=== PATIENT | male | born 1945 | race Caucasian/White ===

== ENCOUNTER → 2017-06-29 | Outpatient (CLI) | payer MEDICARE | END | disposition home or self-care (01) | LOC: CFH 12:46 | PROVIDERS: ATTEND Orthopaedic Surgery | DX: S41.011A Laceration without foreign body of right shoulder, initial encounter (principal); M19.011 Primary osteoarthritis, right shoulder; G89.29 Other chronic pain; Y99.8 Other external cause status; Y92.89 Other specified places as the place of occurrence of the external cause; Y93.89 Activity, other specified; X58.XXXA Exposure to other specified factors, initial encounter ==

== ENCOUNTER 2017-09-09 14:42 | Day surgery (SDC) | payer MEDICARE ==
[~2017-09-09] VITALS: Ht 177.8 cm; Wt 90.0 kg
[2017-09-09] MEDS ORDERED: BUPIVACAINE/PF 0.5% ONE ×2 (15:38→16:16)
[2017-09-09] MEDS ORDERED: LIDOCAINE/MPF 2%-EPI 1:200K, 20 ML ONE (15:39)
[2017-09-09] MEDS ORDERED: EPINEPHRINE 1 MG/ML, 1ML ONE (15:39)
[2017-09-09] MEDS ORDERED: MIDAZOLAM 1 MG/ML, 2ML ONE (15:48)
[2017-09-09] MEDS ORDERED: PROPOFOL 10 MG/ML, 20ML ONE ×3 (15:48)
[2017-09-09] MEDS ORDERED: FENTANYL PF 100 MCG/2ML ONE ×2 (15:48→16:31)
[2017-09-09 15:51] VITALS: BP 146/75
[2017-09-09] MEDS ORDERED: LACTATED RINGERS 1,000 ML IV SCH (16:05)
[2017-09-09] MEDS ORDERED: LISI-170 PO (16:06)
[2017-09-09] MEDS ORDERED: DEXAMETHASONE 4 MG/ML, 1ML ONE (16:13)
[2017-09-09] MEDS ORDERED: ONDANSETRON 2MG/ML, 2ML ONE (16:13)
[2017-09-09] MEDS ORDERED: CEFAZOLIN 1,000 MG ONE (16:13)
[2017-09-09] MEDS ORDERED: TRIAMCINOLONE ACETONIDE 40 MG/ML, 1ML ONE (16:16)
[2017-09-09] MEDS ORDERED: LORazepam 2 MG/ML, 1ML IVPush PRN (16:30)
[2017-09-09] MEDS ORDERED: EPHEDRINE 50 MG/ML, 1ML IVPush PRN (16:30)
[2017-09-09] MEDS ORDERED: MIDAZOLAM 1 MG/ML, 2ML IV PRN (16:30)
[2017-09-09] MEDS ORDERED: ONDANSETRON 2MG/ML, 2ML IVPush PRN (16:30)
[2017-09-09] MEDS ORDERED: OXYcodone 5 MG/5 ML ORAL.SOL UDC PO PRN (16:30)
[2017-09-09] MEDS ORDERED: FENTANYL PF 100 MCG/2ML IV PRN (16:30)
[2017-09-09] MEDS ORDERED: ACETAMINOPHEN 325 MG TABLET PO PRN (16:30)
[2017-09-09] MEDS ORDERED: LABETALOL 5MG/ML, 20ML IV PRN (16:30)
[2017-09-09] MEDS ORDERED: PROMETHAZINE 25 MG/ML, 1ML IV PRN (16:30)
[2017-09-09] MEDS ORDERED: HYDROmorphone 1 MG/ML, 1ML IV PRN (16:30)
[2017-09-09] MEDS ORDERED: TRIAMCINOLONE ACETONIDE 40 MG/ML, 1ML IM ONE (16:33)
[2017-09-09] MEDS ORDERED: BUPIVACAINE/PF-EPI 0.5% 1:200K INFIL ONE ×2 (16:33→16:40)
[2017-09-09] MEDS ORDERED: BUPIVACAINE 0.25% INFIL ONE (16:34)
[2017-09-09] MEDS ORDERED: OXYcodone 5 MG/5 ML ORAL.SOL UDC ONE (17:43)
[2017-09-09] MEDS ORDERED: ACETAMINOPHEN 325 MG TABLET ONE (17:43)
[2017-09-09] MEDS ORDERED: ACETAMINOPHEN 650 MG/20.3 ML UDC ONE (17:43)
== END 2017-09-09 18:55 ==
LOC: OR 14:42
PROVIDERS: ATTEND Orthopaedic Surgery
DX: G56.02 Carpal tunnel syndrome, left upper limb (principal); M75.52 Bursitis of left shoulder; M65.312 Trigger thumb, left thumb; M65.322 Trigger finger, left index finger; M65.332 Trigger finger, left middle finger
CPT/HCPCS: 20610; 26055; 64721; J0171; J0690; J1100; J2250; J2405; J2704; J3010; J3301; J3490; J7120

== ENCOUNTER → 2019-08-22 | Outpatient (CLI) | payer MEDICARE ==
[~2019-08-22] MED LIST: GADOTERATE 10 MMOL/20 ML VIAL ONE; LISI-170 PO
== END | disposition home or self-care (01) ==
LOC: CFH 10:11
PROVIDERS: ATTEND Nurse Practitioner Family
DX: I63.9 Cerebral infarction, unspecified (principal); H53.2 Diplopia; R25.1 Tremor, unspecified
CPT/HCPCS: 70553; A9575

== ENCOUNTER → 2020-06-19 | Outpatient (CLI) | payer MEDICARE ==
[~2020-06-19] MED LIST changes: +ALLO100T30 PO; +ALLO300T PO; +AMIO200T42 PO; +APIX5TAB PO; +ATOR40TA78 PO; +CARV25TA12 PO; -GADOTERATE 10 MMOL/20 ML VIAL ONE; +LOSA50TA14 PO; +MULT-658 PO; +POTASSIUM CHLORIDE PO; +PRED10TA PO; +PRED20TA PO; +SUPER B COMPLEX PO
== END | disposition home or self-care (01) ==
LOC: STAR 14:05
PROVIDERS: ATTEND Anesthesiology
DX: Z01.812 Encounter for preprocedural laboratory examination (principal); Z20.828 Contact with and (suspected) exposure to other viral communicable diseases
CPT/HCPCS: 36415; 87635

== ENCOUNTER 2020-06-23 07:54 | Day surgery (SDC) | payer MEDICARE ==
[~2020-06-23] VITALS: Ht 181.6 cm; Wt 93.2 kg
[~2020-06-23 07:54] MED LIST changes: -ALLO100T30 PO; -AMIO200T42 PO; -APIX5TAB PO; -ATOR40TA78 PO; -CARV25TA12 PO; -MULT-658 PO; -POTASSIUM CHLORIDE PO; -PRED10TA PO; -SUPER B COMPLEX PO
[2020-06-23] MEDS ORDERED: SODIUM CHLORIDE 0.9% 1,000 ML IV SCH (08:20)
[2020-06-23] MEDS ORDERED: FENTANYL PF 250 MCG/5ML ONE (08:31)
[2020-06-23] MEDS ORDERED: POTASSIUM CHLORIDE PO (08:37)
[2020-06-23] MEDS ORDERED: MULT-658 PO (08:37)
[2020-06-23] MEDS ORDERED: SUPER B COMPLEX PO (08:37)
[2020-06-23] MEDS ORDERED: ATOR40TA78 PO (08:37)
[2020-06-23] MEDS ORDERED: PRED10TA PO (08:37)
[2020-06-23] MEDS ORDERED: ALLO100T30 PO (08:37)
[2020-06-23] MEDS ORDERED: AMIO200T42 PO (08:37)
[2020-06-23] MEDS ORDERED: APIX5TAB PO (08:37)
[2020-06-23] MEDS ORDERED: CARV25TA12 PO (08:37)
[2020-06-23 08:40] VITALS: BP 158/75
[2020-06-23] MEDS ORDERED: PLEASE ENTER HEIGHT AND WEIGHT MC SCH (09:00)
[2020-06-23 09:13] LABS: ANION GAP 9 mmol/L (5-15); CALCIUM 9.2 mg/dL (8.5-10.1); CHLORIDE 109 mmol/L (98-107); CREATININE 1.16 mg/dL (0.7-1.3)
[2020-06-23 09:17] LABS: BASOPHILS # (AUTO) 0.05 x10^3/uL (0-0.1); BASOPHILS % (AUTO) 1 % (0-1); EOSINOPHILS # (AUTO) 0.05 x10^3/uL (0-0.4); EOSINOPHILS % (AUTO) 1 % (1-7); LYMPHOCYTES # (AUTO) 1.59 x10^3/uL (1-3.4); LYMPHOCYTES % (AUTO) 20 % (22-44); MD NO; MEAN CORPUSCULAR HEMOGLOBIN 31.3 pg (27.5-34.5); MEAN CORPUSCULAR HGB CONC 33.3 g/dL (33.2-36.2); MEAN PLATELET VOLUME 8.6 fL (7.4-10.4); MONOCYTES # (AUTO) 0.81 x10^3/uL (0.2-0.8); MONOCYTES % (AUTO) 10 % (2-9); NEUTROPHILS # (AUTO) 5.35 x10^3/uL (1.8-6.8); NEUTROPHILS % (AUTO) 68 % (42-75); PLATELET COUNT 222 x10^3/uL (130-400); RED BLOOD COUNT 4.39 x10^6/uL (4.38-5.82); RED CELL DISTRIBUTION WIDTH 13.5 % (9.4-14.8)
[2020-06-23] MEDS ORDERED: ACETAMINOPHEN 325 MG TABLET PO PRN (09:30)
[2020-06-23] MEDS ORDERED: HYDROmorphone 1 MG/ML, 1ML INJ IVPush PRN (09:30)
[2020-06-23] MEDS ORDERED: PROMETHAZINE 25 MG/ML, 1ML IVPush PRN (09:30)
[2020-06-23] MEDS ORDERED: EPHEDRINE 50 MG/ML, 1ML IVPush PRN (09:30)
[2020-06-23] MEDS ORDERED: FENTANYL PF 100 MCG/2ML IV PRN (09:30)
[2020-06-23] MEDS ORDERED: ONDANSETRON 2MG/ML, 2ML IVPush PRN (09:30)
[2020-06-23] MEDS ORDERED: MEPERIDINE/PF 25MG/0.5ML IVPush PRN (09:30)
[2020-06-23] MEDS ORDERED: OXYcodone 5 MG/5 ML ORAL.SOL UDC PO PRN (09:30)
[2020-06-23] MEDS ORDERED: hydrALAzine 20 MG/ML, 1ML IV PRN (09:30)
[2020-06-23] MEDS ORDERED: LABETALOL 5MG/ML, 20ML IV PRN (09:30)
[2020-06-23] MEDS ORDERED: ROCURONIUM 10 MG/ML,10ML ONE (10:05)
[2020-06-23] MEDS ORDERED: SUCCINYLCHOLINE 20 MG/ML, 10ML ONE (10:08)
[2020-06-23] MEDS ORDERED: DEXAMETHASONE 4 MG/ML, 1ML ONE (10:08)
[2020-06-23] MEDS ORDERED: ONDANSETRON 2MG/ML, 2ML ONE (10:08)
[2020-06-23] MEDS ORDERED: PROPOFOL 10 MG/ML, 20ML ONE (10:08)
[2020-06-23] MEDS ORDERED: SUGAMMADEX 200 MG/2 ML IVPush ONE (10:09)
[2020-06-23] MEDS ORDERED: PHENYLEPHRINE 10 MG/ML ONE (10:18)
[2020-06-23] MEDS ORDERED: FENTANYL PF 100 MCG/2ML ONE (11:41)
[2020-06-23] MEDS ORDERED: POTASSIUM CHLORIDE 99 MG HOMEMEDPO SCH (21:00)
[2020-06-23] MEDS ORDERED: ATORVASTATIN 40 MG TABLET PO SCH (21:00)
[2020-06-23] MEDS ORDERED: APIXABAN 5 MG TABLET PO SCH (21:00)
[2020-06-24] MEDS ORDERED: CARVEDILOL 25 MG TABLET PO SCH (06:00)
[2020-06-24] MEDS ORDERED: MULTIVITAMIN 1 TABLET PO SCH (09:00)
[2020-06-24] MEDS ORDERED: ALLOPURINOL 100 MG TABLET PO SCH (09:00)
== END 2020-06-23 15:23 | disposition home or self-care (01) ==
LOC: CACL 07:54
PROVIDERS: ATTEND Internal Medicine Cardiovascular Disease
DX: I48.92 Unspecified atrial flutter (principal); I42.9 Cardiomyopathy, unspecified; I10 Essential (primary) hypertension; E78.5 Hyperlipidemia, unspecified; M10.9 Gout, unspecified; Z79.01 Long term (current) use of anticoagulants; Z79.899 Other long term (current) drug therapy; Z86.73 Personal history of transient ischemic attack (TIA), and cerebral infarction without residual deficits; Z91.010 Allergy to peanuts
CPT/HCPCS: 36415; 71046; 80048; 85025; 93613; 93621; 93653; C1730; C1732; C1894; J0330; J1100; J2370; J2405; J2704; J3010; Q9967